=== PATIENT | female | born 1990 | race African-American/Black ===

== ENCOUNTER 2016-04-05 12:34 | Observation (INO) | payer OTHER ==
[2016-02-01 16:02] VITALS: BP 94/64
[~2016-04-05 12:34] MED LIST: OXYC-323 PO; VARE1TAB21 PO
[2016-04-05] MEDS ORDERED: IV RINGERS,LACTATED 1000ML 1,000 ML IV SCH ×3 (13:30)
[2016-04-05] MEDS ORDERED: BUTORPHANOL 2 MG VIAL. IV ONE (17:00)
== END 2016-04-05 23:00 | disposition home or self-care (01) ==
LOC: 3 SO LND 12:34
PROVIDERS: ADMIT Obstetrics & Gynecology; ATTEND Obstetrics & Gynecology
DX: O26.893 Other specified pregnancy related conditions, third trimester (principal); M54.9 Dorsalgia, unspecified; R10.9 Unspecified abdominal pain; Z3A.34 34 weeks gestation of pregnancy
CPT/HCPCS: 96361; 96374; G0378; G0379; J0595; J7120

== ENCOUNTER 2016-05-04 11:37 | Observation (INO) | payer OTHER ==
[2016-02-01 16:02] VITALS: BP 94/64
== END 2016-05-04 13:50 | disposition home or self-care (01) ==
LOC: 3 SO LND 11:37
PROVIDERS: ADMIT Obstetrics & Gynecology; ATTEND Obstetrics & Gynecology
DX: O26.893 Other specified pregnancy related conditions, third trimester (principal); R10.30 Lower abdominal pain, unspecified; M54.9 Dorsalgia, unspecified; Z3A.38 38 weeks gestation of pregnancy
CPT/HCPCS: G0378; G0379

== ENCOUNTER 2016-05-08 05:20 | Inpatient (IN) | payer OTHER ==
[~2016-05-08] VITALS: Ht 160 cm; Wt 73.9 kg
[2016-05-08 06:00] VITALS: BP 95/62
[2016-05-08] MEDS ORDERED: IV RINGERS,LACTATED 1000ML 1,000 ML IV SCH (06:00)
[2016-05-08] MEDS ORDERED: CITRIC ACID/SODIUM CITRATE 30 ML SOLUTION. PO ONE (06:00)
[2016-05-08] MEDS ORDERED: CEFAZOLIN 2GM PREMIX 50 ML IV ONE (06:00)
[2016-05-08 06:15] LABS: HEMATOCRIT 34.9 % (36.0-47.0); HEMOGLOBIN 11.2 g/dL (12.0-15.5); RED BLOOD COUNT 4.37 x10^6/uL (3.50-5.40); RED CELL DISTRIBUTION WIDTH 13.7 % (11.5-14.5); WHITE BLOOD COUNT 15.3 x10^3/uL (4.0-11.0)
[2016-05-08] MEDS: IV RINGERS,LACTATED 1000ML 1,000 ML IV SCH ×3 (06:24→08:59)
[2016-05-08] MEDS ORDERED: FAMOTIDINE 20 MG/2 ML VIAL ONE (07:13)
[2016-05-08] MEDS ORDERED: OXYTOCIN 10 UNIT/ML VIAL. ONE ×2 (07:13→08:06)
[2016-05-08] MEDS ORDERED: ONDANSETRON PF 4 MG/2 ML VIAL. ONE (07:13)
[2016-05-08] MEDS ORDERED: MORPHINE PF 5 MG/10 ML VIAL. ONE (07:13)
[2016-05-08] MEDS ORDERED: FENTANYL PF 100 MCG/2 ML VIAL. ONE (07:13)
--- NOTE | 2016-05-08 07:35 | PDOC1 ---
OB - History Hx of Present Care: Good Care Ultrasounds: Normal mid trimester US Obstetrical Complications: None Medical Complications: None Past Family/Social History * Past Medical, Surgical, Family and Obstetric Histories reviewed from chart. Rubella: Immune RPR/VDRL: Negative GBS Status: Negative HBsAG: Negative OB - Chief Complaint & HPI Date of Admission: Date of Admission: May 08, 2016 at 05:20 Chief Complaint/History : 2 Para: 1 EGA: 39 Reason for admission: section Indication for : desires repeat Admission Nurse Assessment Rev: Yes Problems: OB - Admission Exam Physical Exam Vitals: VS - Last 72 Hours, by Label Date Time Temp Pulse Resp B/P Pulse Ox O2 Delivery O2 Flow Rate FiO2 05/08/16 06:00 98.5 80 18 95/62 Room Air 98.5 HEENT: Normal Heart: Regular Rate Lungs: Clear Abdomen: Gravid, Non tender, Soft Extremities: Edema Reflexes: Normal Cervical Dilatation: 1cm Effacement: 50% Station: -3 Membranes: Intact Heart Rate: Normal Accelerations: Accelerations Present Decelerations: No decelerations Contractions on Admission: >10 Minutes Apart Intensity: Mild Text A: 39 wks IUP Previous c/s P: Admit for repeat c/s. BANDAR VINCENT Jr, MD May 08, 2016 07:35
--- NOTE | 2016-05-08 08:29 | PDOC4 ---
OB Operative Note PRE OP DIAGNOSIS: Previoujs C- section POST OP DIAGNOSIS: Previoujs C- section OPERATION PERFORMED: R [facility] Surgeon Dr. Chan Anesthesia: Regional (Spinal) Blood Loss 500 ml Specimen placenta and infant OB Findings: Position (Vertex), Sex (Male), (8/9), Weight (3080 Gram) Complications none Additional Remarks pt. BANDAR Ireland Jr, MD May 08, 2016 08:29
[2016-05-08] MEDS ORDERED: ZOLPIDEM 5 MG TABLET. PO PRN (08:30)
[2016-05-08] MEDS ORDERED: MAG HYDROX/ALUMINUM HYD/SIMETH 30 ML ORAL.SUSP PO PRN (08:30)
[2016-05-08] MEDS ORDERED: KETOROLAC TROMETHAMINE 30 MG/ML SYRINGE. IV PRN (08:30)
[2016-05-08] MEDS ORDERED: ONDANSETRON PF 4 MG/2 ML VIAL. IV PRN (08:30)
[2016-05-08] MEDS ORDERED: OXYTOCIN 30 UNIT/500 ML PREMIX 500 ML IV PRN (08:30)
[2016-05-08] MEDS ORDERED: 0.9 % SODIUM CHLORIDE 10 ML DISP.SYRIN. IV PRN (08:30)
[2016-05-08 09:26] LABS: BILIRUBIN,URINE NEGATIVE (NEG); GLUCOSE,URINE NEGATIVE (NEG); NITRITE,URINE NEGATIVE (NEG); PH,URINE 7.5; PROTEIN,URINE NEGATIVE (NEG-TRACE); UROBILINOGEN,URINE 0.2 mg/dL (0.2 mg/dL)
[2016-05-08 09:45] LABS: BACTERIA,URINE MODERATE /HPF (0-FEW); SQUAMOUS EPITHELIAL CELL,UR MANY /LPF
[2016-05-08] MEDS: KETOROLAC TROMETHAMINE 30 MG/ML SYRINGE. IV PRN ×3 (10:39→22:47)
--- NOTE | 2016-05-08 11:03 | OP ---
DATE OF SURGERY: 05/08/2016 PREOPERATIVE DIAGNOSES: 1. A 39-week intrauterine . 2. Previous . POSTOPERATIVE DIAGNOSES: 1. A 39-week intrauterine . 2. Previous . PROCEDURE: Repeat low transverse section. SURGEON: Bandar Chan MD ANESTHESIA: Spinal. ESTIMATED BLOOD LOSS: 500 mL. COMPLICATIONS: None. FINDINGS: Viable male , Apgars 8 and 9. Weight 3080 grams. Three-vessel cord, placenta delivered manually intact. SUMMARY: A 26-year-old, 2, para 1 at 39 weeks' gestation who presented for repeat section. She was counseled on risks, benefits, and expectations and voiced a clear understanding to proceed. DESCRIPTION OF PROCEDURE: The patient was taken to surgery suite and placed in dorsal supine position. She was prepped with ChloraPrep and draped in sterile fashion. After adequate anesthesia, a Pfannenstiel skin incision was made with scalpel down to and through the fascia. Fascia was extended laterally using curved Baxter scissors. The superior edge of the fascia was grasped with two Vince clamps and dissected free of the abdominal rectus muscle superiorly using blunt dissection along with Bovie cautery. The same process took place inferiorly. The abdominal rectus muscles were dissected sharply with curved Baxter scissors. Peritoneum was entered sharply with curved Baxter scissors. The incision was extended superiorly as well as inferiorly. The Jose C ring retractor was placed. Low transverse hysterotomy incision was made with a scalpel down to the amniotic sac. Hysterotomy incision was extended laterally and superiorly digitally. With the aid of fundal pressure, the infant's head was delivered in a smooth atraumatic manner. With additional fundal pressure, the posterior shoulder was delivered followed by the anterior shoulder. Rest of the male infant was delivered. was suctioned with bulb syringe orally and nasally, umbilical cord was clamped twice, cut, and viable male was handed to waiting nursing staff. Umbilical cord blood was then obtained. Three-vessel cord placenta was delivered manually intact. The uterus was exteriorized and cleared of clot and debris with a moist lap. The hysterotomy incision was reapproximated using 1-0 Vicryl suture in a running locked fashion. A vovyjj-vj-hejgb suture was placed in the left apex of the hysterotomy incision for better hemostasis. Uterus palpated firm. Fallopian tubes and ovaries appeared normal bilaterally. Posterior cul-de-sac was cleared of clot and debris with moist lap. The uterus then returned to the abdomen. Pericolic gutters were cleared of clot and debris with moist lap. Interceed was placed over the hysterotomy incision in an inverted T fashion. The Jose C ring retractor was removed. The peritoneum was reapproximated using 1-0 Vicryl suture. The fascia was reapproximated using 0 Vicryl suture in a running fashion. Skin was reapproximated using 4-0 Vicryl suture in subcuticular manner. The patient tolerated the procedure well and was taken to recovery room in stable condition. Sponge and needle counts correct x 3. BANDAR CHAN MD DR: MILLIE/kathi JOB#: [id number] / [id number]
[2016-05-08 11:41] VITALS: BP 110/66
[2016-05-08 12:30] VITALS: BP 96/58
[2016-05-08 15:12] VITALS: BP 94/54
[2016-05-08] MEDS: FERROUS SULFATE 325 MG TABLET PO SCH (17:00)
[2016-05-08] MEDS: DIPHENHYDRAMINE ORAL ELIXIR 12.5 MG/5 ML. PO PRN (19:54)
[2016-05-08 21:00] VITALS: BP 98/49
[2016-05-08] MEDS: SIMETHICONE 80 MG TAB.CHEW PO PRN (22:47)
[2016-05-09 01:09] VITALS: BP 98/49
[2016-05-09] MEDS: OXYCODONE/APAP 5/325 TABLET. PO PRN ×3 (02:29→21:26)
[2016-05-09] MEDS: DIPHENHYDRAMINE ORAL ELIXIR 12.5 MG/5 ML. PO PRN ×2 (04:40→12:40)
[2016-05-09] MEDS: KETOROLAC TROMETHAMINE 30 MG/ML SYRINGE. IV PRN (04:40)
[2016-05-09 04:46] VITALS: BP 89/44
[2016-05-09 04:46] LABS: BASO % 0 % (0-3); EOS % 2 % (0-3); HEMATOCRIT 28.3 % (36.0-47.0); HEMOGLOBIN 9.1 g/dL (12.0-15.5); LYMPH # 1.9 x10^3/uL (1.0-4.8); LYMPH % 13 % (24-48); MEAN CORPUSCULAR HEMOGLOBIN 26 pg (25-35); MEAN CORPUSCULAR HGB CONC 32 g/dL (31-37); MEAN CORPUSCULAR VOLUME 80 fL (79-100); MONO % 14 % (0-9); NEUT % 72 % (31-73); PLATELET COUNT 183 x10^3/uL (140-400); RED BLOOD COUNT 3.53 x10^6/uL (3.50-5.40); RED CELL DISTRIBUTION WIDTH 13.6 % (11.5-14.5); WHITE BLOOD COUNT 15.5 x10^3/uL (4.0-11.0)
[2016-05-09 06:58] LABS: % EOS 2 % (0-5)
[2016-05-09 06:59] LABS: PLT ESTIMATE ADEQUATE (ADEQUATE)
[2016-05-09] MEDS: FERROUS SULFATE 325 MG TABLET PO SCH ×2 (08:07→17:33)
[2016-05-09] MEDS: DOCUSATE SODIUM 100 MG CAPSULE PO PRN (08:07)
[2016-05-09] MEDS: SIMETHICONE 80 MG TAB.CHEW PO PRN ×2 (08:07→17:31)
--- NOTE | 2016-05-09 08:07 | PDOC ---
OB Progress Note Date of Service 05/09/16 Time of Evaluation 0805 Problem List Problems Medical Problems: (1) delivery delivered Status: Acute Notes Pt. feeling well. Pain controlled. She has shoulder pain that is most likely muscular. She is tolerating regular diet and bottle feeding. Lab Laboratory Tests Test 05/08/16 03:44 05/08/16 05:55 05/09/16 04:20 Urine Collection Type Unknown Urine Color Yellow Urine Clarity Clear Urine pH 7.5 Urine Specific [place] <=1.005 Urine Protein Negativemg/dL (NEG-TRACE) Urine Glucose (UA) Negativemg/dL (NEG) Urine Ketones (Stick) Negativemg/dL (NEG) Urine Blood Negative (NEG) Urine Nitrite Negative (NEG) Urine Bilirubin Negative (NEG) Urine Urobilinogen Dipstick 0.2mg/dL (0.2 mg/dL) Urine Leukocyte Esterase Moderate (NEG) Urine RBC 1-2/HPF (0-2) Urine WBC 1-4/HPF (0-4) Urine Squamous Epithelial Cells Many/LPF Urine Transitional Epithelial Cells Few/LPF Urine Bacteria Moderate/HPF (0-FEW) White Blood Count 15.3x10^3/uL (4.0-11.0) 15.5x10^3/uL (4.0-11.0) Red Blood Count 4.37x10^6/uL (3.50-5.40) 3.53x10^6/uL (3.50-5.40) Hemoglobin 11.2g/dL (12.0-15.5) 9.1g/dL (12.0-15.5) Hematocrit 34.9% (36.0-47.0) 28.3% (36.0-47.0) Mean Corpuscular Volume 80fL (79-100) 80fL (79-100) Mean Corpuscular Hemoglobin 26pg (25-35) 26pg (25-35) Mean Corpuscular Hemoglobin Concent 32g/dL (31-37) 32g/dL (31-37) Red Cell Distribution Width 13.7% (11.5-14.5) 13.6% (11.5-14.5) Platelet Count 222x10^3/uL (140-400) 183x10^3/uL (140-400) RPR Titer Additional Testing Negative (Non Reactive) Neutrophils (%) (Auto) 72% (31-73) Lymphocytes (%) (Auto) 13% (24-48) Monocytes (%) (Auto) 14% (0-9) Eosinophils (%) (Auto) 2% (0-3) Basophils (%) (Auto) 0% (0-3) Neutrophils # (Auto) 11.2x10^3uL (1.8-7.7) Lymphocytes # (Auto) 1.9x10^3/uL (1.0-4.8) Monocytes # (Auto) 2.1x10^3/uL (0.0-1.1) Eosinophils # (Auto) 0.3x10^3/uL (0.0-0.7) Basophils # (Auto) 0.0x10^3/uL (0.0-0.2) Segmented Neutrophils % 57% (35-66) Band Neutrophils % 18% (0-9) Lymphocytes % 15% (24-48) Monocytes % 8% (0-10) Eosinophils % 2% (0-5) Platelet Estimate Adequate (ADEQUATE) Laboratory Tests Test 05/09/16 04:20 White Blood Count 15.5x10^3/uL (4.0-11.0) Red Blood Count 3.53x10^6/uL (3.50-5.40) Hemoglobin 9.1g/dL (12.0-15.5) Hematocrit 28.3% (36.0-47.0) Mean Corpuscular Volume 80fL (79-100) Mean Corpuscular Hemoglobin 26pg (25-35) Mean Corpuscular Hemoglobin Concent 32g/dL (31-37) Red Cell Distribution Width 13.6% (11.5-14.5) Platelet Count 183x10^3/uL (140-400) Neutrophils (%) (Auto) 72% (31-73) Lymphocytes (%) (Auto) 13% (24-48) Monocytes (%) (Auto) 14% (0-9) Eosinophils (%) (Auto) 2% (0-3) Basophils (%) (Auto) 0% (0-3) Neutrophils # (Auto) 11.2x10^3uL (1.8-7.7) Lymphocytes # (Auto) 1.9x10^3/uL (1.0-4.8) Monocytes # (Auto) 2.1x10^3/uL (0.0-1.1) Eosinophils # (Auto) 0.3x10^3/uL (0.0-0.7) Basophils # (Auto) 0.0x10^3/uL (0.0-0.2) Segmented Neutrophils % 57% (35-66) Band Neutrophils % 18% (0-9) Lymphocytes % 15% (24-48) Monocytes % 8% (0-10) Eosinophils % 2% (0-5) Platelet Estimate Adequate (ADEQUATE) Medications Current Medications Ketorolac Tromethamine 30 mg 30 mg PRN Q6HRS PRN IV PAIN Last administered on 04:40; Start 05/08/16 at 06:00; Stop 05/13/16 at 05:59 Lactated Ringer's 1,000 ml @ 1,000 mls/hr Q1H IV Last administered on 06:22; Start 05/08/16 at 06:00; Stop 05/08/16 at 06:59; Status DC Lactated Ringer's 1,000 ml @ 125 mls/hr Q8H IV Last administered on 05/08/16 08:59; Start 05/08/16 at 07:00; Stop 05/09/16 at 02:19; Status DC Cefazolin Sodium/ Dextrose (Ancef 2gm Premix) 50 ml @ 100 mls/hr 1X ONCE IV Last administered on 05/08/16 07:06; Start 05/08/16 at 06:00; Stop 05/08/16 at 06: 29; Status DC Citric Acid/ Sodium Citrate (Bicitra) 30 ml 1X ONCE PO Last administered on 09:05; Start 05/08/16 at 06:00; Stop 05/08/16 at 06:01; Status DC Famotidine (Pepcid) 20 mg STK-MED ONCE .ROUTE ; Start 05/08/16 at 07:13; Stop 05/08/16 at 07:14; Status DC Ondansetron HCl (Zofran) 4 mg STK-MED ONCE .ROUTE ; Start 05/08/16 at 07:13; Stop 05/08/16 at 07:14; Status DC Fentanyl Citrate (Fentanyl 2ml Vial) 100 mcg STK-MED ONCE .ROUTE ; Start at 07:13; Stop 05/08/16 at 07:14; Status DC Oxytocin (Pitocin) 10 unit STK-MED ONCE .ROUTE ; Start 05/08/16 at 07:13; Stop at 07:14; Status DC Morphine Sulfate (Morphine Preservative Free) 5 mg STK-MED ONCE .ROUTE ; Start 05/08/16 at 07:13; Stop 05/08/16 at 07:14; Status DC Oxytocin (Pitocin) 10 unit STK-MED ONCE .ROUTE ; Start 05/08/16 at 08:06; Stop at 08:07; Status DC Sodium Chloride 3 ml 3 ml QSHIFT PRN IV AFTER MEDS AND BLOOD DRAWS; Start at 08:30 Oxytocin/Sodium Chloride (Oxytocin Premix Infusion) 500 ml @ 125 mls/hr CONT PRN IV EXCESSIVE POST- BLEEDING; Start 05/08/16 at 08:30; Stop 05/08/16 at 16:29; Status DC Ibuprofen (Motrin) 800 mg PRN Q8HRS PRN PO INFLAMMATION; Start 05/08/16 at 08:30 Ondansetron HCl (Zofran) 4 mg PRN Q6HRS PRN IV NAUSEA/VOMITING; Start 05/08/16 at 08:30 Docusate Sodium (Colace) 100 mg PRN BID PRN PO CONSTIPATION; Start 05/08/16 at 08:30 Al Hydrox/Mg Hydrox/Simethicone (Mylanta Plus Xs) 30 ml PRN Q4HRS PRN PO HEARTBURN / GAS; Start 05/08/16 at 08:30 Simethicone (Gas-X) 80 mg PRN AFTMEALHC PRN PO GAS / BLOATING Last administered on 05/08/16 22:47; Start 05/08/16 at 08:30 Diphenhydramine HCl (Benadryl Oral Elixir) 12.5 mg PRN Q6HRS PRN PO ITCHING Last administered on 05/09/16 04:40; Start 05/08/16 at 08:30 Ferrous Sulfate (Feosol) 325 mg BIDWMEALS PO ; Start 05/08/16 at 17:00 Zolpidem Tartrate (Ambien) 5 mg PRN QHS PRN PO INSOMNIA, MAY REPEAT X1; Start 05/08/16 at 08:30 Oxycodone/ Acetaminophen (Percocet 5/325) 2 tab PRN Q4HRS PRN PO MODERATE PAIN , SEVERE PAIN Last administered on 05/09/16t 02:29; Start 05/08/16 at 08:30 Ketorolac Tromethamine (Toradol) 30 mg PRN Q6HRS PRN IV PAIN; Start 05/08/16 at 08:30; Stop 05/13/16 at 08:29 Active Scripts Active Exam Abd: soft, mild tenderness, fundus firm Bandage in place and dry. Assessment POD#1 s/p repeat c/s Plan of Care: Continue current Tx, Mgmt BANDAR VINCENT Jr, MD May 09, 2016 08:07
[2016-05-09] MEDS ORDERED: DIPHTH,PERTUSS(ACELL),TET TOX 0.5 ML DISP.SYRIN. VAX IM ONE (09:30)
[2016-05-09] MEDS: IBUPROFEN 800 MG TABLET. PO PRN ×2 (10:40→17:31)
[2016-05-09 11:20] VITALS: BP 92/52
[2016-05-09 17:50] VITALS: BP 104/62
[2016-05-09 22:30] VITALS: BP 104/66
[2016-05-10] MEDS: OXYCODONE/APAP 5/325 TABLET. PO PRN ×4 (03:56→17:17)
[2016-05-10] MEDS: IBUPROFEN 800 MG TABLET. PO PRN ×2 (03:56→17:18)
[2016-05-10 04:20] VITALS: BP 103/70
[2016-05-10] MEDS: SIMETHICONE 80 MG TAB.CHEW PO PRN (04:27)
--- NOTE | 2016-05-10 07:55 | PDOC ---
OB Progress Note Date of Service 05/10/16 Time of Evaluation 0750 Problem List Problems Medical Problems: (1) delivery delivered Status: Acute Notes PT. feeling well. Pain controlled. No complaints. Lab Laboratory Tests Test 05/09/16 04:20 White Blood Count 15.5x10^3/uL (4.0-11.0) Red Blood Count 3.53x10^6/uL (3.50-5.40) Hemoglobin 9.1g/dL (12.0-15.5) Hematocrit 28.3% (36.0-47.0) Mean Corpuscular Volume 80fL (79-100) Mean Corpuscular Hemoglobin 26pg (25-35) Mean Corpuscular Hemoglobin Concent 32g/dL (31-37) Red Cell Distribution Width 13.6% (11.5-14.5) Platelet Count 183x10^3/uL (140-400) Neutrophils (%) (Auto) 72% (31-73) Lymphocytes (%) (Auto) 13% (24-48) Monocytes (%) (Auto) 14% (0-9) Eosinophils (%) (Auto) 2% (0-3) Basophils (%) (Auto) 0% (0-3) Neutrophils # (Auto) 11.2x10^3uL (1.8-7.7) Lymphocytes # (Auto) 1.9x10^3/uL (1.0-4.8) Monocytes # (Auto) 2.1x10^3/uL (0.0-1.1) Eosinophils # (Auto) 0.3x10^3/uL (0.0-0.7) Basophils # (Auto) 0.0x10^3/uL (0.0-0.2) Segmented Neutrophils % 57% (35-66) Band Neutrophils % 18% (0-9) Lymphocytes % 15% (24-48) Monocytes % 8% (0-10) Eosinophils % 2% (0-5) Platelet Estimate Adequate (ADEQUATE) Medications Current Medications Ketorolac Tromethamine 30 mg 30 mg PRN Q6HRS PRN IV PAIN Last administered on t 04:40; Start 05/08/16 at 06:00; Stop 05/09/16 at 09:24; Status DC Lactated Ringer's 1,000 ml @ 1,000 mls/hr Q1H IV Last administered on 06:22; Start 05/08/16 at 06:00; Stop 05/08/16 at 06:59; Status DC Lactated Ringer's 1,000 ml @ 125 mls/hr Q8H IV Last administered on 05/08/16 08:59; Start 05/08/16 at 07:00; Stop 05/09/16 at 02:19; Status DC Cefazolin Sodium/ Dextrose (Ancef 2gm Premix) 50 ml @ 100 mls/hr 1X ONCE IV Last administered on 05/08/16 07:06; Start 05/08/16 at 06:00; Stop 05/08/16 at 06: 29; Status DC Citric Acid/ Sodium Citrate (Bicitra) 30 ml 1X ONCE PO Last administered on 09:05; Start 05/08/16 at 06:00; Stop 05/08/16 at 06:01; Status DC Famotidine (Pepcid) 20 mg STK-MED ONCE .ROUTE ; Start 05/08/16 at 07:13; Stop 05/08/16 at 07:14; Status DC Ondansetron HCl (Zofran) 4 mg STK-MED ONCE .ROUTE ; Start 05/08/16 at 07:13; Stop 05/08/16 at 07:14; Status DC Fentanyl Citrate (Fentanyl 2ml Vial) 100 mcg STK-MED ONCE .ROUTE ; Start at 07:13; Stop 05/08/16 at 07:14; Status DC Oxytocin (Pitocin) 10 unit STK-MED ONCE .ROUTE ; Start 05/08/16 at 07:13; Stop at 07:14; Status DC Morphine Sulfate (Morphine Preservative Free) 5 mg STK-MED ONCE .ROUTE ; Start 05/08/16 at 07:13; Stop 05/08/16 at 07:14; Status DC Oxytocin (Pitocin) 10 unit STK-MED ONCE .ROUTE ; Start 05/08/16 at 08:06; Stop at 08:07; Status DC Sodium Chloride 3 ml 3 ml QSHIFT PRN IV AFTER MEDS AND BLOOD DRAWS; Start at 08:30; Stop 05/09/16 at 09:24; Status DC Oxytocin/Sodium Chloride (Oxytocin Premix Infusion) 500 ml @ 125 mls/hr CONT PRN IV EXCESSIVE POST- BLEEDING; Start 05/08/16 at 08:30; Stop 05/08/16 at 16:29; Status DC Ibuprofen (Motrin) 800 mg PRN Q8HRS PRN PO INFLAMMATION Last administered on 03:56; Start 05/08/16 at 08:30 Ondansetron HCl (Zofran) 4 mg PRN Q6HRS PRN IV NAUSEA/VOMITING; Start 05/08/16 at 08:30; Stop 05/09/16 at 09:24; Status DC Docusate Sodium (Colace) 100 mg PRN BID PRN PO CONSTIPATION Last administered on 05/09/16 08:07; Start 05/08/16 at 08:30 Al Hydrox/Mg Hydrox/Simethicone (Mylanta Plus Xs) 30 ml PRN Q4HRS PRN PO HEARTBURN / GAS; Start 05/08/16 at 08:30 Simethicone (Gas-X) 80 mg PRN AFTMEALHC PRN PO GAS / BLOATING Last administered on 05/10/16 04:27; Start 05/08/16 at 08:30 Diphenhydramine HCl (Benadryl Oral Elixir) 12.5 mg PRN Q6HRS PRN PO ITCHING Last administered on 05/09/16 12:40; Start 05/08/16 at 08:30 Ferrous Sulfate (Feosol) 325 mg BIDWMEALS PO Last administered on 05/09/16 17: 33; Start 05/08/16 at 17:00 Zolpidem Tartrate (Ambien) 5 mg PRN QHS PRN PO INSOMNIA, MAY REPEAT X1; Start 05/08/16 at 08:30 Oxycodone/ Acetaminophen (Percocet 5/325) 2 tab PRN Q4HRS PRN PO MODERATE PAIN , SEVERE PAIN Last administered on 05/10/16 03:56; Start 05/08/16 at 08:30 Ketorolac Tromethamine (Toradol) 30 mg PRN Q6HRS PRN IV PAIN; Start 05/08/16 at 08:30; Stop 05/09/16 at 09:24; Status DC Diphtheria/ Tetanus/Acell Pertussis (Boostrix) 0.5 ml ONCE ONCE VAX IM Last administered on 05/09/16t 09:15; Start 05/09/16 at 09:30; Stop 05/09/16 at 09:30; Status DC Active Scripts Active Exam Abd: soft, mild tenderness, fundus firm INcision site: clean, dry and intact Assessment POD#2 s/p repeat c/s Plan of Care: Continue current Tx, Mgmt BANDAR VINCENT Jr, MD May 10, 2016 07:55
[2016-05-10] MEDS: DOCUSATE SODIUM 100 MG CAPSULE PO PRN (08:32)
[2016-05-10] MEDS: FERROUS SULFATE 325 MG TABLET PO SCH ×2 (08:33→17:17)
[2016-05-10 10:22] VITALS: BP 107/65
[2016-05-10 13:00] VITALS: BP 109/7
[2016-05-10 17:43] VITALS: BP 107/75
[2016-05-10 21:16] VITALS: BP 99/61
[2016-05-11 04:18] VITALS: BP 112/75
--- NOTE | 2016-05-11 07:55 | PDOC ---
OB Progress Note Date of Service 05/11/16 Time of Evaluation 0665 Problem List Problems Medical Problems: (1) delivery delivered Status: Acute Notes Pt. feeling well. No complaints. Medications Current Medications Ketorolac Tromethamine 30 mg 30 mg PRN Q6HRS PRN IV PAIN Last administered on 04:40; Start 05/08/16 at 06:00; Stop 05/09/16 at 09:24; Status DC Lactated Ringer's 1,000 ml @ 1,000 mls/hr Q1H IV Last administered on 06:22; Start 05/08/16 at 06:00; Stop 05/08/16 at 06:59; Status DC Lactated Ringer's 1,000 ml @ 125 mls/hr Q8H IV Last administered on 05/08/16 08:59; Start 05/08/16 at 07:00; Stop 05/09/16 at 02:19; Status DC Cefazolin Sodium/ Dextrose (Ancef 2gm Premix) 50 ml @ 100 mls/hr 1X ONCE IV Last administered on 05/08/16 07:06; Start 05/08/16 at 06:00; Stop 05/08/16 at 06: 29; Status DC Citric Acid/ Sodium Citrate (Bicitra) 30 ml 1X ONCE PO Last administered on 09:05; Start 05/08/16 at 06:00; Stop 05/08/16 at 06:01; Status DC Famotidine (Pepcid) 20 mg STK-MED ONCE .ROUTE ; Start 05/08/16 at 07:13; Stop 05/08/16 at 07:14; Status DC Ondansetron HCl (Zofran) 4 mg STK-MED ONCE .ROUTE ; Start 05/08/16 at 07:13; Stop 05/08/16 at 07:14; Status DC Fentanyl Citrate (Fentanyl 2ml Vial) 100 mcg STK-MED ONCE .ROUTE ; Start at 07:13; Stop 05/08/16 at 07:14; Status DC Oxytocin (Pitocin) 10 unit STK-MED ONCE .ROUTE ; Start 05/08/16 at 07:13; Stop at 07:14; Status DC Morphine Sulfate (Morphine Preservative Free) 5 mg STK-MED ONCE .ROUTE ; Start 05/08/16 at 07:13; Stop 05/08/16 at 07:14; Status DC Oxytocin (Pitocin) 10 unit STK-MED ONCE .ROUTE ; Start 05/08/16 at 08:06; Stop at 08:07; Status DC Sodium Chloride 3 ml 3 ml QSHIFT PRN IV AFTER MEDS AND BLOOD DRAWS; Start at 08:30; Stop 05/09/16 at 09:24; Status DC Oxytocin/Sodium Chloride (Oxytocin Premix Infusion) 500 ml @ 125 mls/hr CONT PRN IV EXCESSIVE POST- BLEEDING; Start 05/08/16 at 08:30; Stop 05/08/16 at 16:29; Status DC Ibuprofen (Motrin) 800 mg PRN Q8HRS PRN PO INFLAMMATION Last administered on 17:18; Start 05/08/16 at 08:30 Ondansetron HCl (Zofran) 4 mg PRN Q6HRS PRN IV NAUSEA/VOMITING; Start 05/08/16 at 08:30; Stop 05/09/16 at 09:24; Status DC Docusate Sodium (Colace) 100 mg PRN BID PRN PO CONSTIPATION Last administered on 05/10/16 08:32; Start 05/08/16 at 08:30 Al Hydrox/Mg Hydrox/Simethicone (Mylanta Plus Xs) 30 ml PRN Q4HRS PRN PO HEARTBURN / GAS; Start 05/08/16 at 08:30 Simethicone (Gas-X) 80 mg PRN AFTMEALHC PRN PO GAS / BLOATING Last administered on 05/10/16 04:27; Start 05/08/16 at 08:30 Diphenhydramine HCl (Benadryl Oral Elixir) 12.5 mg PRN Q6HRS PRN PO ITCHING Last administered on 05/09/16 12:40; Start 05/08/16 at 08:30 Ferrous Sulfate (Feosol) 325 mg BIDWMEALS PO Last administered on 05/10/16 17: 17; Start 05/08/16 at 17:00 Zolpidem Tartrate (Ambien) 5 mg PRN QHS PRN PO INSOMNIA, MAY REPEAT X1; Start 05/08/16 at 08:30 Oxycodone/ Acetaminophen (Percocet 5/325) 2 tab PRN Q4HRS PRN PO MODERATE PAIN , SEVERE PAIN Last administered on 05/10/16 17:17; Start 05/08/16 at 08:30 Ketorolac Tromethamine (Toradol) 30 mg PRN Q6HRS PRN IV PAIN; Start 05/08/16 at 08:30; Stop 05/09/16 at 09:24; Status DC Diphtheria/ Tetanus/Acell Pertussis (Boostrix) 0.5 ml ONCE ONCE VAX IM Last administered on 05/09/16 09:15; Start 05/09/16 at 09:30; Stop 05/09/16 at 09:30; Status DC Active Scripts Active Exam Abd: soft, non tender, fundus firm Incision site: clean, dry and intact Assessment POD#3 s/p repeat c/s Plan of Care: See new orders (D/ c home.) BANDAR VINCENT Jr, MD May 11, 2016 07:54
--- NOTE | 2016-05-11 07:55 | DISCH ---
DISCHARGE INSTRUCTIONS Condition on Discharge Condition on Discharge: Stable Activity After Discharge Activity Instructions for Disc: Activity as tolerated Lifting Instructions after Dis: No heavy lifting Driving Instructions after Dis: Do not drive today Diet after Discharge Diet after Discharge: Regular Contacting the DRKylie after DC Call your doctor for: Concerns you may have Follow-Up Follow up with: Dr. Chan in 2 weeks. BANDAR CHAN Jr, MD May 11, 2016 07:55
[2016-05-11] MEDS ORDERED: IBUP-1060 PO (07:56)
[2016-05-11] MEDS ORDERED: OXYC-323 PO (07:56)
[2016-05-11] MEDS ORDERED: DOCU-27 PO (07:56)
[2016-05-11 09:30] VITALS: BP 97/66
[2016-05-11] MEDS: IBUPROFEN 800 MG TABLET. PO PRN (09:39)
[2016-05-11] MEDS: FERROUS SULFATE 325 MG TABLET PO SCH (09:40)
[2016-05-11] MEDS: DOCUSATE SODIUM 100 MG CAPSULE PO PRN (09:40)
[2016-05-11] MEDS: OXYCODONE/APAP 5/325 TABLET. PO PRN (09:40)
[2016-05-11 13:05] VITALS: BP 113/79
== END 2016-05-11 14:00 | disposition home or self-care (01) | DRG 766 ==
LOC: 3 SO LND 05:20 → 3 NORTH 11:07
PROVIDERS: ADMIT Obstetrics & Gynecology; ATTEND Obstetrics & Gynecology
PROC: 10D00Z1 Extraction of Products of Conception, Low, Open Approach (ICD-10-PCS; principal; 2016-05-08)
PROC: 3E0234Z Introduction of Serum, Toxoid and Vaccine into Muscle, Percutaneous Approach (ICD-10-PCS; 2016-05-08)
DX: O34.211 Maternal care for low transverse scar from previous cesarean delivery (principal); Z37.0 Single live birth; Z3A.39 39 weeks gestation of pregnancy; M25.519 Pain in unspecified shoulder; O99.02 Anemia complicating childbirth; D50.0 Iron deficiency anemia secondary to blood loss (chronic)
CPT/HCPCS: 36415; 81001; 85007; 85027; 86593; 86850; 86900; 86901; 87086; 90715; J0690; J1885; J2270; J2405; J2590; J3010; J7120; S0028